=== PATIENT | female | born 1960 | race Caucasian/White ===

== ENCOUNTER → 2019-03-08 08:41 | Outpatient (CLI) | payer BC, SELFPAY ==
--- NOTE | 2019-03-08 | DI.MRI.S_ITS ---
PROCEDURE: MR CERVICAL SPINE WO CON INDICATIONS: CERVICALGIA TECHNIQUE: Noncontrast sagittal T1 spin echo and T2 fast spin echo, sagittal STIR, foraminal oblique sagittal T2 fast spin echo, and axial gradient echo or T2 fast spin echo through the cervical spine. COMPARISON: None. FINDINGS: Image quality: Excellent. Alignment and Curvature: There is extensive spondylitic change. There is minimal degenerative retrolisthesis of C5 on C6 and C4 on C5. There is minimal degenerative anterolisthesis of C7 on T1. Bone Marrow: Marrow demonstrates normal overall signal. Spinal Cord: Visualized spinal cord has normal size and signal. No cerebellar tonsillar herniation. Paraspinous Soft Tissues: No paravertebral masses. Prevertebral soft tissues are normal in thickness. C2-C3: No canal stenosis or foraminal stenosis. C3-C4: Severe chronic disc height loss. Diffuse posterior disc osteophyte mildly indents on the ventral aspect of the cord without canal stenosis. Bilateral facet hypertrophy. Moderate to severe right foraminal narrowing secondary to osteophyte off the right facet joint. C4-C5: Severe disc height loss and mild retrolisthesis of C4 on C5. Diffuse posterior osteophyte mildly flattens the ventral aspect of the cord. Borderline canal stenosis. Bilateral uncovertebral joint hypertrophy. Severe bilateral foraminal narrowing. C5-C6: Severe chronic disc height loss. Mild retrolisthesis of C5 on C6. Diffuse posterior osteophyte results in severe canal stenosis. Severe bilateral foraminal narrowing. C6-C7: Moderate chronic disc height loss. Diffuse posterior disc plus osteophyte. Mild central canal stenosis. Severe right foraminal narrowing and moderate left foraminal narrowing. C7-T1: Mild anterolisthesis of C7 on T1. No canal stenosis. Severe bilateral foraminal narrowing IMPRESSION: 1. There is extensive cervical spondylytic change. 2. Central canal stenosis is borderline at C4-C5, severe at C5-C6, and mild at C6-C7. 3. Multilevel bilateral severe foraminal narrowing as described above. Dictated by: Justice Francis M.D. on 03/08/2019 at 11:53 Approved by: Justice Francis M.D. on 03/08/2019 at 12:01
== END ==
PROVIDERS: PCP Family Medicine Geriatric Medicine; Visit Provider Physician Assistant Medical
DX: M54.2 Cervicalgia (principal); M47.812 Spondylosis without myelopathy or radiculopathy, cervical region; M48.02 Spinal stenosis, cervical region
CPT/HCPCS: 72141

== ENCOUNTER → 2020-12-05 11:06 | Outpatient (CLI) | payer BC, SELFPAY ==
--- NOTE | 2020-12-05 | DI.MRI.S_ITS ---
PROCEDURE: MR CERVICAL SPINE WO CON INDICATIONS: Spondylosis without myelopathy or radiculopathy, c TECHNIQUE: Noncontrast sagittal T1 spin echo and T2 fast spin echo, sagittal STIR, foraminal oblique sagittal T2 fast spin echo, and axial gradient echo or T2 fast spin echo through the cervical spine. COMPARISON: [facility], MR, MR CERVICAL SPINE WO CON, 03/08/2019, 8:51. FINDINGS: Image quality: Degraded by motion artifact.. Alignment and Curvature: There is normal bony alignment. Bone Marrow: Multilevel degenerative endplate sclerosis and spurring. Diffuse facet arthropathy. Grade 1 retrolisthesis of C3 on C4 and C4 on C5. Spinal Cord: Visualized spinal cord has normal size and signal. No cerebellar tonsillar herniation. Paraspinous Soft Tissues: No paravertebral masses. Prevertebral soft tissues are normal in thickness. C2-C3: Normal appearance. C3-C4: Mild canal narrowing. Severe right foraminal stenosis with nerve root compression. Mild left foraminal narrowing. No interval change C4-C5: Mild canal narrowing. Severe bilateral foraminal stenoses with nerve root compression on both sides. No interval change C5-C6: Mild canal narrowing. Severe bilateral foraminal stenosis with nerve root compression on both sides. No interval change C6-C7: Mild canal narrowing. Mild left foraminal stenosis. Severe right foraminal stenosis with nerve root compression. C7-T1: Mild canal narrowing. Moderate to severe right foraminal stenosis with nerve root compression although no interval change. Severe left foraminal stenosis with nerve root compression and no interval change. IMPRESSION: Diffuse bilateral foraminal stenosis as detailed above by spinal level however no definite interval change since 03/08/19. Multilevel spondylolisthesis as above. Dictated by: Stephan Reynoso M.D. on 12/05/2020 at 12:40 Approved by: Stephan Reynoso M.D. on 12/05/2020 at 12:48
== END ==
PROVIDERS: PCP Family Medicine; Referring Provider Physical Medicine & Rehabilitation Pain Medicine; Visit Provider Physical Medicine & Rehabilitation Pain Medicine
DX: M47.812 Spondylosis without myelopathy or radiculopathy, cervical region (principal); M48.02 Spinal stenosis, cervical region; M43.12 Spondylolisthesis, cervical region
CPT/HCPCS: 72141

== ENCOUNTER → 2024-01-18 08:53 | Outpatient (CLI) | payer BC, SELFPAY ==
--- NOTE | 2024-01-18 08:54 | DI.US.S_ITS ---
PROCEDURE: US PELVIC COMPLETE INDICATIONS: LEFT ADNEXAL CYST TECHNIQUE: Real-time scanning was performed of the pelvic organs, with image documentation. Additional endovaginal scanning was necessary due to incomplete visualization of the adnexal and endometrial structures by transabdominal scanning. COMPARISON: [facility], CT, ABDOMEN/PELVIS WITH CONTRAST, 12/10/2009, 16:43. FINDINGS: Uterus: Absent Ovaries: Ovaries are absent. Adnexal region demonstrates a simple cyst on the left measuring 4.9 x 3.8 x 5.8 cm. There is no visualized solid component. Other: No pathologic free abdominal or pelvic fluid. IMPRESSION: Simple appearing left adnexal cyst. No priors are available for comparison. No visualized solid component. Given size, interval follow-up is recommended to document stability, as no recent priors are available for comparison. We strive to produce accurate, complete, and clear reports of imaging services. To assist us in improving patient care, this report was composed using standard report templates and voice recognition software. Therefore, it may contain abnormal punctuation, insertions and/or omissions. Occasional wrong-word or sound-alike substitutions may occur. Though we review the report and make efforts to correct it, we do recommend that the report be read carefully in proper context to recognize any text inaccuracies. Dictated by: Anel Laura M.D. on 01/18/2024 at 15:49 Approved by: Anel Laura M.D. on 01/18/2024 at 15:51
== END ==
PROVIDERS: PCP Family Medicine; Referring Provider Obstetrics & Gynecology; Visit Provider Obstetrics & Gynecology
DX: N94.89 Other specified conditions associated with female genital organs and menstrual cycle (principal)
CPT/HCPCS: 76830; 76856